=== PATIENT | female | born 1975 | race Caucasian/White ===

== ENCOUNTER 2017-03-11 20:31 | Emergency (ER) | payer OTHER ==
[~2017-03-11] VITALS: Ht 172.7 cm; Wt 108.9 kg
[2017-03-11 21:01] VITALS: BP 135/77
[2017-03-11] MEDS ORDERED: NEXIUM40 MG/PACK PO (21:02)
[2017-03-11] MEDS ORDERED: WELLBUTRIN XL150 MG PO (21:03)
[2017-03-11] MEDS ORDERED: ALLEGRA-D 24 H1 EACH PO (21:03)
[2017-03-11] MEDS ORDERED: FLONASE ALLERG9.9 ML NAS (21:03)
== END 2017-03-11 23:22 | disposition home or self-care (01) ==
LOC: ED 20:31
DX: S60.041A Contusion of right ring finger without damage to nail, initial encounter (principal); W20.8XXA Other cause of strike by thrown, projected or falling object, initial encounter; Y93.89 Activity, other specified; Y92.9 Unspecified place or not applicable; Y99.9 Unspecified external cause status

== ENCOUNTER 2019-10-08 16:31 | Emergency (ER) | payer OTHER ==
[~2019-10-08] VITALS: Ht 172.7 cm; Wt 108.9 kg
[2019-10-08 16:31] VITALS: BP 152/72
[~2019-10-08 16:31] MED LIST: ALLEGRA-D 24 H1 EACH PO; FLONASE ALLERG9.9 ML NAS; NEXIUM40 MG/PACK PO; WELLBUTRIN XL150 MG PO
[2019-10-08] MEDS ORDERED: CEFADROXIL500 M1 PO (16:41)
== END 2019-10-08 17:15 | disposition home or self-care (01) ==
LOC: ED 16:31
DX: S61.213A Laceration without foreign body of left middle finger without damage to nail, initial encounter (principal); Z79.899 Other long term (current) drug therapy; W26.8XXA Contact with other sharp object(s), not elsewhere classified, initial encounter; Y93.89 Activity, other specified; Y92.89 Other specified places as the place of occurrence of the external cause; Y99.8 Other external cause status